=== PATIENT | female | born 1965 | race Caucasian/White ===

== ENCOUNTER 2017-05-02 11:36 | Emergency (ER) | payer BC ==
[2017-05-02] MEDS ORDERED: SODIUM CHLORIDE 0.9% FLUSH 10 ML SOL IV PRN (12:22)
[2017-05-02] MEDS ORDERED: NITROGLYCERIN 0.4 MG TAB SL PRN (12:22)
[2017-05-02 12:51] LABS: ALBUMIN 3.8 gm/dl (3.4-5.0); ALT 26 IU/L (14-63); CALCIUM 9.3 mg/dl (8.5-10.1); GLOM FILT RATE 105 mL/min (>60); POTASSIUM 3.8 mMol/L (3.5-5.1); SODIUM 142 mMol/L (136-145)
[2017-05-02 12:55] LABS: BASOPHILS % (AUTO) 1 % (0-3); EOSINOPHILS % (AUTO) 0 % (0-9); HEMATOCRIT 43 % (35-47); MEAN CORPUSCULAR HGB CONC 34.7 gm/dl (32.0-36.0); MEAN CORPUSCULAR VOLUME 91 fL (81-99); MONOCYTES % (AUTO) 5.3 % (0-12); NEUTROPHILS % (AUTO) 77.2 % (37-80)
[2017-05-02 13:04] VITALS: TEMP 96.9
[2017-05-02 18:36] VITALS: O2SAT 99
[2017-05-02 18:37] VITALS: BP 124/75; PULSE 68; RESP 14
== END 2017-05-02 19:03 | disposition home or self-care (01) ==
LOC: ED 11:36
DX: I34.1 Nonrheumatic mitral (valve) prolapse (principal); I34.0 Nonrheumatic mitral (valve) insufficiency; R53.83 Other fatigue; R06.09 Other forms of dyspnea; R53.1 Weakness
CPT/HCPCS: 36415; 71010; 80053; 83735; 84484; 85025; 93005; 99284; 99285